=== PATIENT | female | born 1990 ===

== ENCOUNTER 2018-05-25 09:38 | Day surgery (SDC) | payer MEDICAID ==
[2018-05-24 14:54] VITALS: BMI 21.7
[2018-05-25] MEDS ORDERED: Midazolam 2 MG/2 ML VIAL ONE (12:38)
[2018-05-25] MEDS ORDERED: Propofol 10 mg/ml Inj (20 ML) ONE (12:39)
[2018-05-25] MEDS ORDERED: Lidocaine Hydrochloride 5 ML INJ ONE (12:39)
[2018-05-25 13:10] VITALS: RESP 16
[2018-05-25 14:03] VITALS: BP 100/68; PULSE 60; TEMP 98.4; O2SAT 99
== END 2018-05-25 13:40 | disposition home or self-care (01) ==
LOC: C.ENDO 09:38
PROVIDERS: ATTEND Internal Medicine Gastroenterology
DX: R14.0 Abdominal distension (gaseous) (principal); K29.70 Gastritis, unspecified, without bleeding
CPT/HCPCS: 43239; 84703; 88305; 88313; 88342; J2250; J2704; J3010